=== PATIENT | female | born 1975 | race Caucasian/White ===

== ENCOUNTER 2019-03-09 15:59 | Emergency (ER) | payer OTHER ==
[~2019-03-09] VITALS: Ht 160 cm; Wt 99.8 kg
[2019-03-09] MEDS ORDERED: NEXIUM 24HR20 M1 PO (16:15)
[2019-03-09] MEDS ORDERED: CYMBALTA20 MG PO (16:15)
[2019-03-09] MEDS ORDERED: NORCO 5-325 TA1 EAC1 PO (16:25)
[2019-03-09] MEDS ORDERED: SSD CREAM 1% 5050 GM TOP (16:54)
[2019-03-09 17:03] VITALS: BP 144/84
== END 2019-03-09 17:05 | disposition home or self-care (01) ==
LOC: M.ERS 15:59
DX: T21.12XA Burn of first degree of abdominal wall, initial encounter (principal); T21.11XA Burn of first degree of chest wall, initial encounter; T22.111A Burn of first degree of right forearm, initial encounter; T25.132A Burn of first degree of left toe(s) (nail), initial encounter; T25.131A Burn of first degree of right toe(s) (nail), initial encounter; T31.0 Burns involving less than 10% of body surface; M79.7 Fibromyalgia; K21.9 Gastro-esophageal reflux disease without esophagitis; Z90.710 Acquired absence of both cervix and uterus; Z88.6 Allergy status to analgesic agent; X19.XXXA Contact with other heat and hot substances, initial encounter; Y93.89 Activity, other specified; Y92.89 Other specified places as the place of occurrence of the external cause; Y99.8 Other external cause status